=== PATIENT | female | born 1970 | race Caucasian/White ===

== ENCOUNTER 2017-10-19 15:12 | Emergency (ER) | payer OTHER ==
[~2017-10-19] VITALS: Ht 175.3 cm; Wt 81.6 kg
[2017-10-19 15:53] LABS: BASO % 1 % (0-3); EOS # 0.1 x10^3/uL (0.0-0.7); EOS % 1 % (0-3); HEMOGLOBIN 14.6 g/dL (12.0-15.5); LYMPH # 1.7 x10^3/uL (1.0-4.8); LYMPH % 27 % (24-48); MEAN CORPUSCULAR HEMOGLOBIN 31 pg (25-35); MEAN CORPUSCULAR HGB CONC 34 g/dL (31-37); MEAN CORPUSCULAR VOLUME 90 fL (79-100); MONO # 0.4 x10^3/uL (0.0-1.1); MONO % 6 % (0-9); NEUT # 4.2 x10^3uL (1.8-7.7); NEUT % 66 % (31-73); PLATELET COUNT 185 x10^3/uL (140-400); RED BLOOD COUNT 4.76 x10^6/uL (3.50-5.40); RED CELL DISTRIBUTION WIDTH 12.5 % (11.5-14.5); WHITE BLOOD COUNT 6.3 x10^3/uL (4.0-11.0)
--- NOTE | 2017-10-19 16:02 | PHYS DOC ---
Past History Past Medical History: Hypertension Smoking: Greater than 1 pack/day Alcohol Use: None Drug Use: None Adult General Chief Complaint Chief Complaint: HEADACHE HPI HPI 47-year-old female patient states she was diagnosed with hypertension one year ago and took lisinopril 20 mg for a few months but for the last 5-6 months she didn't take any medication because of lack of insurance. Patient states since she woke up this morning she had forehead burning feeling and frontal headache. Patient state they have been increasing last about 7 minutes but the headache is constant since this morning as a mild throbbing pain. Patient rated her pain 4/10. She denies chest pain, shortness of breath, nausea and vomiting, blurred vision, focal neuro deficit, history of the same problem. Patient states she googled her symptoms and is concerned for stroke. Review of Systems Review of Systems Constitutional: Denies fever or chills [] Eyes: Denies change in visual acuity, redness, or eye pain [] HENT: Denies nasal congestion or sore throat [] Respiratory: Denies cough or shortness of breath [] Cardiovascular: No additional information not addressed in HPI [] GI: Denies abdominal pain, nausea, vomiting, bloody stools or diarrhea [] : Denies dysuria or hematuria [] Musculoskeletal: Denies back pain or joint pain [] Integument: Denies rash or skin lesions [] Neurologic: Denies focal weakness or sensory changes, reports headache[] Endocrine: Denies polyuria or polydipsia [] All other systems were reviewed and found to be within normal limits, except as documented in this note. Physical Exam Physical Exam Constitutional: Well developed, well nourished, mild distress, non-toxic appearance, anxious. [] HENT: Normocephalic, atraumatic, bilateral external ears normal, oropharynx moist, no oral exudates, nose normal. [] Eyes: PERRLA, EOMI, conjunctiva normal, no discharge. [] Neck: Normal range of motion, no tenderness, supple, no stridor. [] Cardiovascular:Heart rate regular rhythm, no murmur [] Lungs & Thorax: Bilateral breath sounds clear to auscultation [] Abdomen: Bowel sounds normal, soft, no tenderness, no masses, no pulsatile masses. [] Skin: Warm, dry, no erythema, no rash. [] Back: No tenderness, no CVA tenderness. [] Extremities: No tenderness, no cyanosis, no clubbing, ROM intact, no edema. [] Neurologic: Alert and oriented X 3, normal motor function, normal sensory function, no focal deficits noted. [] Psychologic anxious, judgement normal, mood normal. [] EKG EKG EKG interpreted by me. EKG at 1527 showed normal sinus rhythm at rate of [address] and T wave abnormality[] Radiology/Procedures Radiology/Procedures [] Course & Med Decision Making Course & Med Decision Making Pertinent Labs and Imaging studies reviewed. (See chart for details) Evaluation of patient in ER showed 47-year-old female patient noncompliance with hypertension treatment presented to ER because of headache and forehead bending bleeding. Patient had unremarkable physical exam for elevation of blood pressure more than 200/100. CT head and labs was unremarkable. Patient was treated with hydralazine and her blood pressure gradually dropped to 180/102. Plan to discharge patient home with prescription of lisinopril and hydrochlorothiazide and instruction to quit smoking and follow-up with a primary care physician. Dragon Disclaimer Dragon Disclaimer This electronic medical record was generated, in whole or in part, using a voice recognition dictation system. Departure Departure: Impression: Primary Impression: Hypertensive urgency Additional Impressions: Headache Noncompliance Tobacco abuse Tobacco abuse counseling Disposition: 01 HOME, SELF-CARE (At 1739) Referrals: PCP,[facility] (PCP) Patient Instructions: Hypertension, Smoking Cessation Additional Instructions: Follow-up with your primary care physician in 3-5 days Return to ER if not getting better Quit smoking Scripts Lisinopril/Hydrochlorothiazide (LISINOPRIL-HCTZ 20-25 MG TAB) 1 Each Tablet 1 TAB PO DAILY, #90 TAB 1 Refill Prov: KAMLA LA MD 10/19/17 Problem Qualifiers KAMLA LA MD Oct 19, 2017 16:02
--- NOTE | 2017-10-19 16:07 | EKG ---
[address] [address] Test Date: 2017-10-19 Test Time: 15:27:33 Pat Name: VISHNU SINGLETON Department: Room: Gender: F Programming Intern: SHAHNAZ : 1970 Requested By: KAMLA LA Order Number: [id number] Reading MD: Measurements Intervals Leon Rate: 76 P: 64 MT: 176 QRS: 24 QRSD: 96 T: 26 QT: 358 QTc: 407 Interpretive Statements SINUS RHYTHM NO SPECIFIC ECG ABNORMALITIES RI6.01 Unconfirmed report No previous ECG available for comparison
[2017-10-19 16:14] LABS: ALBUMIN 4.1 g/dL (3.4-5.0); ALBUMIN/GLOBULIN RATIO 1.4 (1.0-1.7); ALK PHOS 58 U/L (46-116); ALT (SGPT) 18 U/L (14-59); ANION GAP 9 (6-14); AST (SGOT) 14 U/L (15-37); BLOOD UREA NITROGEN 12 mg/dL (7-20); BUN/CREATININE RATIO 13 (6-20); CALCIUM 9.1 mg/dL (8.5-10.1); CARBON DIOXIDE 28 mmol/L (21-32); CHLORIDE 106 mmol/L (98-107); CREATINE KINASE 82 U/L (26-192); CREATININE 0.9 mg/dL (0.6-1.0); GFR 66.5; GLUCOSE 101 mg/dL (70-99); POTASSIUM 3.8 mmol/L (3.5-5.1); SODIUM 143 mmol/L (136-145); TOTAL BILIRUBIN 0.5 mg/dL (0.2-1.0); TOTAL PROTEIN 7.1 g/dL (6.4-8.2)
[2017-10-19] MEDS ORDERED: hydrALAZINE 20 MG/ML VIAL. IV ONE ×2 (16:15→17:15)
--- NOTE | 2017-10-19 16:31 | RAD ---
CT HEAD WITHOUT CONTRAST10/19/2017 5:39 PM Indication: headache Comparison: None Procedure: Multidetector CT imaging of the head was performed without the administration of contrast. Findings: There is no evidence of acute intracranial hemorrhage. There is no evidence of acute territorial infarction. Please note that CT is limited for evaluation of acute ischemia. No mass effect or midline shift is identified . The ventricles and basilar cisterns have an appropriate appearance. No abnormal extra-axial fluid collections are seen. No acute osseous changes are identified. Impression: No evidence of acute intracranial abnormality PQRS Compliance Statement: One or more of the following individualized dose reduction techniques were utilized for this examination: 1. Automated exposure control 2. Adjustment of the mA and/or kV according to patient size 3. Use of iterative reconstruction technique
[2017-10-19 17:30] VITALS: BP 180/102
[2017-10-19] MEDS ORDERED: LISI1TAB7 PO (17:40)
== END 2017-10-19 17:45 | disposition home or self-care (01) ==
LOC: ER 15:12
DX: I16.0 Hypertensive urgency (principal); R51 Headache; F17.200 Nicotine dependence, unspecified, uncomplicated; I10 Essential (primary) hypertension; Z91.19 Patient's noncompliance with other medical treatment and regimen; Z71.6 Tobacco abuse counseling
CPT/HCPCS: 36415; 70450; 80053; 82553; 84484; 85025; 93005; 96374; 96376; 99285; J0360